=== PATIENT | female | born 1985 | race African-American/Black ===

== ENCOUNTER 2018-11-25 07:21 | Outpatient (CLI) | payer BC ==
--- NOTE | 2018-11-25 10:43 | MRI ---
MRI BRAIN WITHOUT CONTRAST: Date: 11/25/18 INDICATION: Hydrocephalus. Comparison made to MRI brain dated 10/06/[address] brain dated 08/02/16. FINDINGS: Prominence of the lateral ventricles and third ventricle again noted. 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 No evidence of restricted diffusion. No mass or edema. Slight gliosis in the periventricular white ma tter adjacent to the frontal horn from prior procedure is again noted. Cerebellar tonsillar ectopia is again seen, which does meet criteria for Chiari I. This was described previously. Intracranial internal carotid arteries and cerebral arteries show expected flow-voids. The paranasal sinuses and mastoids appear clear. IMPRESSION: Mild prominence of the lateral ventricles and third ventricle. Continued evidence of a cyst of the ve lum interpositum. Evidence of Chiari I again noted. There has been no progression of the hydrocephalu s. The lateral ventricles may be minimally smaller today when compared to 10/06/16. Exam is otherwise stable. POS: [facility]
== END 2018-11-25 07:22 | disposition home or self-care (01) ==
LOC: BICMRI 07:21
PROVIDERS: ATTEND Neurological Surgery
DX: G91.9 Hydrocephalus, unspecified (principal); G93.5 Compression of brain
CPT/HCPCS: 70551

== ENCOUNTER 2022-03-12 18:54 | Emergency (ER) | payer OTHER, BC | END 2022-03-12 21:00 | disposition home or self-care (01) | LOC: ERS 18:54 | DX: S06.9X1A Unspecified intracranial injury with loss of consciousness of 30 minutes or less, initial encounter (principal); F17.210 Nicotine dependence, cigarettes, uncomplicated; V89.2XXA Person injured in unspecified motor-vehicle accident, traffic, initial encounter | CPT/HCPCS: 70450 ==

== ENCOUNTER 2023-08-14 09:36 | Outpatient (CLI) | payer BC | END 2023-08-14 09:37 | disposition home or self-care (01) | LOC: BICRAD 09:36 | PROVIDERS: ATTEND Nurse Practitioner Family | DX: R82.998 Other abnormal findings in urine (principal) | CPT/HCPCS: 74018 ==

== ENCOUNTER 2023-12-14 08:19 | Emergency (ER) | payer BC | END 2023-12-14 09:36 | disposition home or self-care (01) | LOC: ERS 08:19 | DX: J06.9 Acute upper respiratory infection, unspecified (principal); F17.210 Nicotine dependence, cigarettes, uncomplicated | CPT/HCPCS: 71045; 87081; 87428; 87430 ==

== ENCOUNTER → 2024-01-22 | Emergency (ER) | payer BC ==
[~2024-01-22] MED LIST: Acetaminophen 500 MG TAB ONE; Ketorolac Tromethamine 30 MG (1 mL) VIAL ONE
[2024-01-22 10:40] LABS: #Basophils Less than 0.03 10x3/uL (0.0-0.2); %Basophils 0.3 % (0.0-1.0); %Eosinophils 1.4 % (0.0-10.0); %Monocytes 7.2 % (0.0-10.0); %Neutrophils 46.1 % (42.0-75.0); Hematocrit 36.8 % (36.0-47.0); Hemoglobin 12.3 g/dL (12.0-16.0); Mean Corpuscular HGB CONC 33.4 g/dL (32.0-36.0); Mean Corpuscular Hemoglobin 27.8 pg (27.0-31.0); Mean Corpuscular Volume 83.3 fL (78.0-98.0); Platelet Count 337 10x3/uL (130-400); RBC Distribution Width 14.4 % (11.5-14.5); Red Blood Cell (RBC) Count 4.42 mill/uL (4.20-5.40)
[2024-01-22 10:46] LABS: Bacteria/HPF 3+ HPF (None Seen); Bilirubin Negative (Negative); Blood, Urine 3+ (Negative); CAUTI Indications for Culture Dysuria,urgency,freq; Clarity Turbid (Clear); Glucose, Urine (Dipstick) Normal (Negative); Ketone, Urine Negative (Negative); Leukocyte Negative Leu/uL (Negative); Nitrite Negative (Negative); Protein, Urine (Dipstick) 200 mg/dL (Neg-Trace); RBC/HPF Greater than 50 HPF (0-3); Specific Gravity, Urine 1.026 (1.002-1.036); Squamous Epithelial None Seen HPF (0-3); Urobilinogen Normal mg/dL (Less than 2); WBC/HPF 0-3 HPF (0-3); pH, Urine 6.5 (5.0-9.0)
[2024-01-22 10:50] LABS: Urine Culture Reflex No No
[2024-01-22 10:51] LABS: BHCG - Serum Negative (NEGATIVE); Pregs Control Background? CLEAR/WHITE (CLR/WHITE); Pregs Control Bar Appear? YES (CONTROL BAR)
[2024-01-22 10:56] LABS: ALT (SGPT) 8 U/L (8-55); AST (SGOT) 15 U/L (5-34); Albumin 3.3 g/dL (3.5-5.0); Alkaline Phosphatase 53 U/L (40-110); Anion Gap 13 mmol/L (10-20); BUN (Urea Nitrogen) 9 mg/dL (7.0-18.7); Bilirubin, Total 0.6 mg/dL (0.2-1.2); Calc. Creatinine Clearance 0 mL/min (70-130); Calcium 8.4 mg/dL (7.8-10.44); Carbon Dioxide 23 mmol/L (22-29); Chloride 108 mmol/L (98-107); Estimated GFR 79; Globulin 3.2 g/dL (2.4-3.5); Glucose 116 mg/dL (70-105); Lipase 22 U/L (8-78); Potassium 3.6 mmol/L (3.5-5.1); Protein, Total 6.5 g/dL (6.0-8.3); Sodium 140 mmol/L (136-145)
== END ==
LOC: ERS 09:05
DX: N93.9 Abnormal uterine and vaginal bleeding, unspecified (principal); D25.9 Leiomyoma of uterus, unspecified; F17.210 Nicotine dependence, cigarettes, uncomplicated
CPT/HCPCS: 36415; 76856; 80053; 81001; 83690; 84703; 85025; 96372; J1885